=== PATIENT | female | born 1960 | race Caucasian/White ===

== ENCOUNTER → 2017-10-11 | Outpatient (CLI) | payer OTHER | LOC: BRMIMAGING 09:42 | PROVIDERS: ATTEND Family Medicine | DX: R92.8 Other abnormal and inconclusive findings on diagnostic imaging of breast (principal) ==

== ENCOUNTER 2018-05-21 13:59 | Inpatient (IN) | payer OTHER ==
[2018-05-21] MEDS ORDERED: NS 1,000 ML IV ONE ×2 (14:40→16:09)
--- NOTE | 2018-05-21 14:41 | EDPHY ---
H & P Stated Complaint: from PCP for elevated creatinine Time Seen by Provider: 05/21/18 14:32 HPI/ROS: CHIEF COMPLAINT: Generalized body aches HISTORY OF PRESENT ILLNESS: The patient is a 57-year-old female with a history of diabetes insulin dependent, neuropathy and hypertension who began vomiting about 1 week ago. She was not having diarrhea. No fever. No abdominal pain. She presented to the ER and received 2 L of fluid and was discharged home with nausea medication. She states that she then returned to the ER about 3 days later and again required fluids and nausea medication. Since then her nausea has resolved however she continues to feel general body aches. No fever. No chest pain or shortness of breath. No cough. No sore throat. No headache. No urinary symptoms. She did receive a flu vaccination this year. Today she presented for follow-up with her primary Dr. Zahida Medina who noticed that in the ER on Sunday her creatinine was 1.6. This was before she was given IV fluids. Dr. Medina was concerned about this and recommended she come to the ER for further evaluation. Severity: Moderate Modifying factors: None REVIEW OF SYSTEMS: Constitutional: denies: chills, fever, recent illness, recent injury EENTM: denies: blurred vision, double vision, nose congestion Respiratory: denies: cough, shortness of breath Cardiac: denies: chest pain, irregular heart rate, lightheadedness, palpitations Gastrointestinal/Abdominal: The see HPI Genitourinary: denies: dysuria, frequency, hematuria, pain Musculoskeletal: denies: joint pain, muscle pain Skin: denies: lesions, rash, jaundice, bruising Neurological: denies: headache, numbness, paresthesia, tingling, dizziness, weakness Hematologic/Lymphatic: denies: blood clots, easy bleeding, easy bruising Immunologic/allergic: denies: HIV/AIDS, transplant 10 systems reviewed and negative except as noted EXAM: GENERAL: Well-appearing, well-nourished and in no acute distress. HEAD: Atraumatic, normocephalic. EYES: Pupils equal round and reactive to light, extraocular movements intact, sclera anicteric, conjunctiva are normal. ENT: TMs normal, nares patent, oropharynx clear without exudates. Moist mucous membranes. NECK: Normal range of motion, supple without lymphadenopathy or JVD. LUNGS: Breath sounds clear to auscultation bilaterally and equal. No wheezes rales or rhonchi. HEART: Regular rate and rhythm without murmurs, rubs or gallops. ABDOMEN: Soft, nontender, normoactive bowel sounds. No guarding, no rebound. No masses appreciated. BACK: No CVA tenderness, no spinal tenderness, step-offs or deformities EXTREMITIES: Normal range of motion, no pitting or edema. No clubbing or cyanosis. NEUROLOGICAL: Cranial nerves II through XII grossly intact. Normal speech, normal gait. 5/5 strength, normal movement in all extremities, normal sensation , normal reflexes PSYCH: Normal mood, normal affect. SKIN: Warm, dry, normal turgor, no visible rashes or lesions. Source: Patient Exam Limitations: No limitations - Personal History Current Tetanus/Diphtheria Vaccine: Yes Current Tetanus Diphtheria and Acellular Pertussis (TDAP): Yes - Medical/Surgical History Hx Asthma: No Hx Chronic Respiratory Disease: No Hx Diabetes: Yes Hx Cardiac Disease: Yes Hx Renal Disease: No Hx Cirrhosis: No Hx Alcoholism: No Hx HIV/AIDS: No Hx Splenectomy or Spleen Trauma: No Other PMH: DM 1, HTN, neuropathy, ortho/hyst/ - Family History Significant Family History: No pertinent family hx - Social History Smoking Status: Current every day smoker Alcohol Use: None Constitutional: Initial Vital Signs Temperature (C) 36.8 C 05/21/18 14:05 Heart Rate 78 05/21/18 14:05 Respiratory Rate 18 05/21/18 14:05 Blood Pressure 94/67 L 05/21/18 14:05 O2 Sat (%) 99 05/21/18 14:05 O2 Delivery Mode Room Air Allergies/Adverse Reactions: No Known Allergies Allergy (Unverified 05/21/18 14:05) Home Medications: Medication Instructions Recorded Pregabalin [Lyrica 50mg (*)] 100 mg PO BID 10/11/15 Sertraline HCl [Zoloft 100mg (*)] 150 mg PO DAILY 10/11/15 amLODIPine BESYLATE [Norvasc 5 mg 5 mg PO DAILY 10/11/15 (*)] Cholecalciferol Vit D3 [Vitamin D3 2,000 units PO BID 10/12/15 2000 units tab (OTC)] Ferrous Sulfate [Ferrous Sulf 325 325 mg PO DAILY 10/12/15 MG (*)] Herbals/Supplements -Info Only 1 ea PO DAILY 10/12/15 Potassium Cl [Klor-Con 20 meq (*)] 20 meq PO BID 10/12/15 Ranitidine HCl [Zantac] 150 mg PO BID 10/12/15 Vitamin B Complex [B Complex] 1 each PO DAILY 10/12/15 Gabapentin [Neurontin 100 MG (*)] 100 mg PO BID 05/21/18 Glucosamine Sulfate [Glucosamine 500 mg PO BID 05/21/18 Sulfate 500 MG (*)] Insulin Lispro [humALOG LISPRO 100 0 - 15 unit SC TIDMEAL 05/21/18 units/ml (*)] Lisinopril [Zestril 2.5 mg (*)] 2.5 mg PO DAILY 05/21/18 Metoprolol Succinate Xr [Toprol Xl 100 mg PO BID 05/21/18 100 mg (*)] Medical Decision Making - Diagnostics EKG Interpretation: An EKG obtained and was read and documented in trace view. Please see trace view for full reading and report. Sinus rhythm, unusual biphasic T-wave anteriorly, no previous for comparison A repeat EKG obtained and was read and documented in trace view. Please see trace view for full reading and report. Sinus rhythm, LVH, nonspecific T-wave abnormalities anterior leads, unchanged from previous Imaging Results: Imaging Impressions Chest X-Ray 05/21/18 14:42 Impression: Mild bronchitis. No pneumonia. Imaging: Discussed imaging studies w/ body recall instructor Radiologist ED Course/Re-evaluation: The patient's potassium is significantly low. Her glucose is elevated. She does not have an anion gap. I will continue to treat with fluids and potassium replacement. Will allow the glucose to ride high for now. Have paged hospital service for admission. Patient and agree with this plan. 4:10 p.m. Discussed the case with Dr. Mcgraw who will admit. Differential Diagnosis: Partial list of the Differential diagnosis considered include but were not limited to; renal insufficiency, hyponatremia, hypokalemia, DKA, dehydration, viral syndrome and although unlikely based on the history and physical exam, I also considered influenza, sepsis. Critical Care Time: Critical care time spent by me, Dr. Vail exclusive with this patient was 35 minutes, exclusive of the PA time exclusive of procedures. The organ system that was at risk was cardiovascular and I gave IV fluids, medications, consultation and admission to prevent worsening of the patient's condition - Data Points Laboratory Results: Laboratory Results 05/21/18 14:45 05/21/18 14:45 05/21/18 05/21/18 05/21/18 15:04 14:55 14:45 WBC RBC Hgb Hct MCV MCH MCHC RDW Plt Count MPV Neut % (Auto) Lymph % (Auto) [place] % (Auto) Eos % (Auto) Baso % (Auto) Nucleat RBC Rel Count Absolute Neuts (auto) Absolute Lymphs (auto) Absolute Monos (auto) Absolute Eos (auto) Absolute Basos (auto) Absolute Nucleated RBC Immature Gran % Immature Gran # Sodium Potassium Chloride Carbon Dioxide Anion Gap BUN Creatinine Estimated GFR Glucose Calcium Magnesium 1.5 mg/dL L mg/dL (1.6-2.3) Total Bilirubin Conjugated Bilirubin Unconjugated Bilirubin AST ALT Alkaline Phosphatase Creatine Kinase POC Troponin I 0.06 ng/mL ng/mL (0.00-0.08) Total Protein Albumin Nasal Influenza A PCR NEGATIVE FOR FLU A (NEGATIVE) Nasal Influenza B PCR NEGATIVE FOR FLU B (NEGATIVE) 05/21/18 05/21/18 14:45 14:45 WBC 19.67 10^3/uL H 10^3/uL (3.80-9.50) RBC 4.65 10^6/uL 10^6/uL (4.18-5.33) Hgb 13.6 g/dL g/dL (12.6-16.3) Hct 38.5 % % (38.0-47.0) MCV 82.8 fL fL (81.5-99.8) MCH 29.2 pg pg (27.9-34.1) MCHC 35.3 g/dL g/dL (32.4-36.7) RDW 14.4 % % (11.5-15.2) Plt Count 119 10^3/uL L 10^3/uL (150-400) MPV 12.8 fL H fL (8.7-11.7) Neut % (Auto) 88.7 % H % (39.3-74.2) Lymph % (Auto) 3.7 % L % (15.0-45.0) [place] % (Auto) 6.9 % % (4.5-13.0) Eos % (Auto) 0.0 % L % (0.6-7.6) Baso % (Auto) 0.2 % L % (0.3-1.7) Nucleat RBC Rel Count 0.0 % % (0.0-0.2) Absolute Neuts (auto) 17.46 10^3/uL H 10^3/uL (1.70-6.50) Absolute Lymphs (auto) 0.73 10^3/uL L 10^3/uL (1.00-3.00) Absolute Monos (auto) 1.36 10^3/uL H 10^3/uL (0.30-0.80) Absolute Eos (auto) 0.00 10^3/uL L 10^3/uL (0.03-0.40) Absolute Basos (auto) 0.03 10^3/uL 10^3/uL (0.02-0.10) Absolute Nucleated RBC 0.00 10^3/uL 10^3/uL (0-0.01) Immature Gran % 0.5 % % (0.0-1.1) Immature Gran # 0.09 10^3/uL 10^3/uL (0.00-0.10) Sodium 131 mEq/L L mEq/L (135-145) Potassium 2.4 mEq/L L* mEq/L (3.5-5.2) Chloride 94 mEq/L L mEq/L (97-110) Carbon Dioxide 23 mEq/l mEq/l (22-31) Anion Gap 14 mEq/L mEq/L (6-14) BUN 20 mg/dL mg/dL (7-23) Creatinine 1.5 mg/dL H mg/dL (0.6-1.0) Estimated GFR 36 Glucose 191 mg/dL H mg/dL (70-100) Calcium 9.0 mg/dL mg/dL (8.5-10.4) Magnesium Total Bilirubin 0.8 mg/dL mg/dL (0.1-1.4) Conjugated Bilirubin 0.0 mg/dL mg/dL (0.0-0.5) Unconjugated Bilirubin 0.3 mg/dL mg/dL (0.0-1.1) AST 15 IU/L IU/L (14-46) ALT 23 IU/L IU/L (9-52) Alkaline Phosphatase 99 IU/L IU/L (38-126) Creatine Kinase 103 IU/L IU/L (0-156) POC Troponin I Total Protein 6.3 g/dL g/dL (6.3-8.2) Albumin 3.8 g/dL g/dL (3.5-5.0) Nasal Influenza A PCR Nasal Influenza B PCR Medications Given: Acetaminophen (Tylenol) 650 mg PO Q4HRS PRN PRN Reason: Pain, Mild/Fever, Can Take PO Stop: 11/17/18 17:21 Last Admin: 05/21/18 18:00 Dose: 650 mg Discontinued Medications Sodium Chloride (Ns) 1,000 mls @ 0 mls/hr IV EDNOW ONE; Wide Open PRN Reason: Protocol Stop: 05/21/18 14:41 Last Admin: 05/21/18 14:45 Dose: 1,000 mls Potassium Chloride (Potassium Cl 10 Meq (Premix)) 100 mls @ 200 mls/hr IV Q30M CAMI Stop: 05/21/18 17:59 Last Admin: 05/21/18 18:04 Dose: 100 mls Sodium Chloride (Ns) 1,000 mls @ 0 mls/hr IV EDNOW ONE; Wide Open PRN Reason: Protocol Stop: 05/21/18 16:10 Last Admin: 05/21/18 16:37 Dose: 1,000 mls Potassium Chloride (Klor Packets) 20 meq PO EDNOW ONE Stop: 05/21/18 15:55 Last Admin: 05/21/18 16:01 Dose: 20 meq Point of Care Test Results: Chemistry 05/21/18 15:04 POC Troponin I 0.06 ng/mL ng/mL (0.00-0.08) Departure - Departure Disposition: [facility] Inpatient Acute Clinical Impression: Hypokalemia Condition: Critical
--- NOTE | 2018-05-21 15:01 | CPEKG ---
Test Reason : OPEN Blood Pressure : / mmHG Vent. Rate : 068 BPM Atrial Rate : 068 BPM P-R Int : 150 ms QRS Dur : 080 ms QT Int : 596 ms P-R-T Axes : 039 053 059 degrees QTc Int : 635 ms Sinus rhythm Consider left ventricular hypertrophy Prolonged QT interval Confirmed by Domonique Abraham ([id number]) on 05/21/2018 3:01:32 PM Referred By: DOMONIQUE ABRAHAM Confirmed By:Domonique Abraham
[2018-05-21 15:04] LABS: PLATELET COUNT 119 10^3/uL (150-400)
--- NOTE | 2018-05-21 15:47 | CPEKG ---
Test Reason : OPEN Blood Pressure : / mmHG Vent. Rate : 071 BPM Atrial Rate : 071 BPM P-R Int : 142 ms QRS Dur : 082 ms QT Int : 528 ms P-R-T Axes : 067 073 056 degrees QTc Int : 574 ms Sinus rhythm Probable left atrial enlargement Probable left ventricular hypertrophy Prolonged QT interval Confirmed by Domonique Abraham ([id number]) on 05/21/2018 3:46:42 PM Referred By: DOMONIQUE ABRAHAM Confirmed By:Domonique Abraham
[2018-05-21 15:50] LABS: CREATINE KINASE 103 IU/L (0-156)
[2018-05-21] MEDS ORDERED: POTASSIUM CL 20 MEQ PKT PO ONE (15:54)
[2018-05-21] MEDS: POTASSIUM Cl (KCl) 100 ML IV SCH ×4 (16:01→18:44)
[2018-05-21] MEDS ORDERED: POTASSIUM Cl (KCl) 40 MEQ in NS 1,000 ML IV SCH (16:30)
--- NOTE | 2018-05-21 16:34 | HOSPPROG ---
Hospitalist Progress Note Assessment/Plan: Please see the history and physical exam as detailed in Felicity Mott's note. I have interviewed and examined the patient and reviewed with Felicity Mott. The patient will require hospital admission for management of hydration, electrolyte issues, monitoring of ekg abnormality, is the setting of intractable nausea vomiting PAST MEDICAL HISTORY: * Hypertension * Diabetes mellitus insulin dependent on a pump, complicated by retinopathy and neuropathy * Fecal incontinence * DJD * Peripheral neuropathy * Hyponatremia * Tobacco abuse * Alcohol abuse has cut back dramatically in the past 6 months * Osteoporosis with fractures of right pubis bone and sacral insufficiency fracture * Multiple thyroid nodules, no malignant cells seen on aspiration 2012 * Sciatica with epidural injection at L5 left * Collagenous colitis * Hypercholesterolemia * Vitamin-D deficiency * Pneumonia CURRENT DIAGNOSES: * Nausea vomiting, suspect Gastroenteritis or other viral illness * Hypokalemia due to above * Dehydration * Acute renal failure due to above * Biphasic T-wave abnormality on EKG * Insulin dependent diabetes on insulin pump: Patient currently states pump not working but her sugars are in reasonable range and improving with hydration so I believe she is getting some insulin, will need close monitoring PLANS: * IV HYDRATION * Potassium replacement, Mag replacement * Monitor those closely * Recheck EKG in morning * Follow sugars closely, no change in pump for now unless there are problems indicating to do so * GI pathogen panel if she has any diarrhea Objective: Vital Signs Temp Pulse Resp BP Pulse Ox 36.8 C 70 16 107/60 98 05/21/18 14:05 05/21/18 15:56 05/21/18 15:56 05/21/18 15:56 05/21/18 15:56 ICD10 Worksheet Patient Problems: Problems Problem Status Onset Hypokalemia Acute Hyponatremia Acute Low back pain Acute Vomiting Acute
[2018-05-21] MEDS ORDERED: PROTOCOL POTASSIUM 1 DOSE MISC PRN (16:35)
[2018-05-21] MEDS ORDERED: MAGNESIUM SULF 1 GM/DEXTROSE 100 ML IV ONE (16:51)
[2018-05-21] MEDS ORDERED: PROTOCOL MAGNESIUM 1 DOSE IV PRN (16:51)
[2018-05-21] MEDS ORDERED: ONDANSETRON 4 MG/2 ML VIAL IVP PRN (17:22)
[2018-05-21] MEDS ORDERED: ONDANSETRON DISINTEGRATING 4 MG TAB PO PRN (17:22)
--- NOTE | 2018-05-21 17:33 | PDGENHP ---
<Heather Mott - Last Filed: 05/21/18 20:03> History and Physical - Chief Complaint Vomiting, nausea - History of Present Illness HPI: 57 y/o female with hx of DM I, HTN and neuropathy presents to the ER with 1 weeks worth of vomiting and nausea. She reports she had one bout of severe vomiting, no hematemesis and many days of dry heaving and small volume emesis. She went to [facility] x 2 for vomiting and nausea, received fluids and anti- emetics. Today, she went to her PCP Dr. Zahida Medina who saw her Cr at time of [facility] visit to be 1.6 and encouraged her to come to the ER. Today, the pt reports no nausea, fever, chills, CP, SOB, diarrhea. Since receiving fluids here and partial potassium replacement, she feels better. She is hypokalemic and (2.4) and LEIDY (BUN/Cr: 20/1.5). She is being admitted for treatment and monitoring. History Information - Allergies/Home Medication List Allergies/Adverse Reactions: No Known Allergies Allergy (Unverified 05/21/18 14:05) Home Medications: Pregabalin [Lyrica 50mg (*)] 100 mg PO BID 10/11/15 [Last Taken 10/11/15 08:00] Sertraline HCl [Zoloft 100mg (*)] 150 mg PO DAILY 10/11/15 [Last Taken 10/11/15] amLODIPine BESYLATE [Norvasc 5 mg (*)] 5 mg PO DAILY 10/11/15 [Last Taken ] Cholecalciferol Vit D3 [Vitamin D3 2000 units tab (OTC)] 2,000 units PO BID [Last Taken 10/11/15 08:00] Ferrous Sulfate [Ferrous Sulf 325 MG (*)] 325 mg PO DAILY 10/12/15 [Last Taken 10/11/15] Herbals/Supplements -Info Only 1 ea PO DAILY 10/12/15 [Last Taken Unknown] Potassium Cl [Klor-Con 20 meq (*)] 20 meq PO BID 10/12/15 [Last Taken 10/11/15 08:00] Ranitidine HCl [Zantac] 150 mg PO BID 10/12/15 [Last Taken 10/11/15 08:00] Vitamin B Complex [B Complex] 1 each PO DAILY 10/12/15 [Last Taken 10/11/15] Gabapentin [Neurontin 100 MG (*)] 100 mg PO BID 05/21/18 [Last Taken Unknown] Glucosamine Sulfate [Glucosamine Sulfate 500 MG (*)] 500 mg PO BID 05/21/18 [ Last Taken Unknown] Insulin Lispro [humALOG LISPRO 100 units/ml (*)] 0 - 15 unit SC TIDMEAL [Last Taken Unknown] Lisinopril [Zestril 2.5 mg (*)] 2.5 mg PO DAILY 05/21/18 [Last Taken Unknown] Metoprolol Succinate Xr [Toprol Xl 100 mg (*)] 100 mg PO BID 05/21/18 [Last Taken Unknown] I have personally reviewed and updated: family history, medical history, social history, surgical history - Past Medical History diabetes type 1 Additional medical history: Neuropathy. Diabetic retinopathy. Hypertension - Surgical History Reports: hysterectomy Additional surgical history: L ankle reconstruction - Family History Positive for: diabetes type II, myocardial infarction - Social History Smoking Status: Current every day smoker Tobacco Use: Cigarettes, Greater than 1 pack/day Alcohol Use: Occasionally (Social drinker. Drinks 3 drinks/week) Drug Use: None Review of Systems Review of Systems: ROS: 10pt was reviewed & negative except for what was stated in HPI & below Physical Exam Physical Exam: Lab data and imaging were reviewed. Case discussed with admitting physician, Dr. Emigdio Mcgraw WBC: 19.67 Plt: 119 Na: 131 K: 2.4 Ma.5 BUN/Cr: 20/1.5 CXR: mild diffuse peribronchial thickening similar to 2012 imaging EKG: SR, LVH, prolonged QT interval Temp Pulse Resp BP Pulse Ox 36.8 C 70 16 107/60 98 05/21/18 14:05 05/21/18 15:56 05/21/18 15:56 05/21/18 15:56 05/21/18 15:56 Constitutional: no apparent distress, appears nourished, not in pain Eyes: PERRL, anicteric sclera, EOMI Ears, Nose, Mouth, Throat: hearing normal, ears appear normal, no oral mucosal ulcers, dry mucous membranes Cardiovascular: regular rate and rhythym, no murmur, rub, or gallop, No edema Peripheral Pulses: 2+: dorsalis-pedis (R) (Radial 2+), dorsalis-pedis (L) ( Radial 2+) Respiratory: reduced air movement (Throughout lung crowe) Gastrointestinal: normoactive bowel sounds, soft, non-tender abdomen, no palpable masses Genitourinary: no bladder fullness, no bladder tenderness Skin: warm, normal color, no rashes or abrasions, no fluctuance, no induration, No mottled Musculoskeletal: full muscle strength, no muscle tenderness, normal joint ROM, no joint effusions Neurologic: AAOx3, sensation intact bilaterally, CN II-XII Intact Psychiatric: interacting appropriately, not anxious, not encephalopathic, thought process linear Lymph, Heme, Immunologic: no cervical LAD, no supraclavicular LAD Lab Data & Imaging Review 05/21/18 14:45 05/21/18 14:45 WBC 19.67 10^3/uL (3.80-9.50) H 05/21/18 14:45 RBC 4.65 10^6/uL (4.18-5.33) 05/21/18 14:45 Hgb 13.6 g/dL (12.6-16.3) 05/21/18 14:45 Hct 38.5 % (38.0-47.0) 05/21/18 14:45 MCV 82.8 fL (81.5-99.8) 05/21/18 14:45 MCH 29.2 pg (27.9-34.1) 05/21/18 14:45 MCHC 35.3 g/dL (32.4-36.7) 05/21/18 14:45 RDW 14.4 % (11.5-15.2) 05/21/18 14:45 Plt Count 119 10^3/uL (150-400) L 05/21/18 14:45 MPV 12.8 fL (8.7-11.7) H 05/21/18 14:45 Neut % (Auto) 88.7 % (39.3-74.2) H 05/21/18 14:45 Lymph % (Auto) 3.7 % (15.0-45.0) L 05/21/18 14:45 [place] % (Auto) 6.9 % (4.5-13.0) 05/21/18 14:45 Eos % (Auto) 0.0 % (0.6-7.6) L 05/21/18 14:45 Baso % (Auto) 0.2 % (0.3-1.7) L 05/21/18 14:45 Nucleat RBC Rel Count 0.0 % (0.0-0.2) 05/21/18 14:45 Absolute Neuts (auto) 17.46 10^3/uL (1.70-6.50) H 05/21/18 14:45 Absolute Lymphs (auto) 0.73 10^3/uL (1.00-3.00) L 05/21/18 14:45 Absolute Monos (auto) 1.36 10^3/uL (0.30-0.80) H 05/21/18 14:45 Absolute Eos (auto) 0.00 10^3/uL (0.03-0.40) L 05/21/18 14:45 Absolute Basos (auto) 0.03 10^3/uL (0.02-0.10) 05/21/18 14:45 Absolute Nucleated RBC 0.00 10^3/uL (0-0.01) 05/21/18 14:45 Immature Gran % 0.5 % (0.0-1.1) 05/21/18 14:45 Immature Gran # 0.09 10^3/uL (0.00-0.10) 05/21/18 14:45 Sodium 131 mEq/L (135-145) L 05/21/18 14:45 Potassium 2.4 mEq/L (3.5-5.2) L* 05/21/18 14:45 Chloride 94 mEq/L (97-110) L 05/21/18 14:45 Carbon Dioxide 23 mEq/l (22-31) 05/21/18 14:45 Anion Gap 14 mEq/L (6-14) 05/21/18 14:45 BUN 20 mg/dL (7-23) 05/21/18 14:45 Creatinine 1.5 mg/dL (0.6-1.0) H 05/21/18 14:45 Estimated GFR 36 05/21/18 14:45 Glucose 191 mg/dL (70-100) H 05/21/18 14:45 Calcium 9.0 mg/dL (8.5-10.4) 05/21/18 14:45 Magnesium 1.5 mg/dL (1.6-2.3) L 05/21/18 14:45 Total Bilirubin 0.8 mg/dL (0.1-1.4) 05/21/18 14:45 Conjugated Bilirubin 0.0 mg/dL (0.0-0.5) 05/21/18 14:45 Unconjugated Bilirubin 0.3 mg/dL (0.0-1.1) 05/21/18 14:45 AST 15 IU/L (14-46) 05/21/18 14:45 ALT 23 IU/L (9-52) 05/21/18 14:45 Alkaline Phosphatase 99 IU/L (38-126) 05/21/18 14:45 Creatine Kinase 103 IU/L (0-156) 05/21/18 14:45 POC Troponin I 0.06 ng/mL (0.00-0.08) 05/21/18 15:04 Total Protein 6.3 g/dL (6.3-8.2) 05/21/18 14:45 Albumin 3.8 g/dL (3.5-5.0) 05/21/18 14:45 Nasal Influenza A PCR NEGATIVE FOR FLU A (NEGATIVE) 05/21/18 14:55 Nasal Influenza B PCR NEGATIVE FOR FLU B (NEGATIVE) 05/21/18 14:55 Assessment & Plan Plan: 57 y/o female with hx of DM I, HTN, neuropathy presents with 1 weeks worth of nausea and vomiting. Negative for influenza. She is hemodynamically stable. 1. Hypokalemic (2.4), hypomagnesemia (1.5), hyponatremic (131) : She received 20 meq PO + 40 meq IV in ED as well as 2L NS. Rechecking BMP now 1999. She is asymptomatic. -K and Mg replacement protocol in place -IV Mg 1gm tonight -Cont tele monitoring 2. DM I: Glucose (192). She does have an insulin pump that is currently not working. She is not receiving any continuous nor bolus insulin w/ her pump. -Glucose checks Q6H + PRN -No ISS for now and will continue to monitor her glucose closely as insulin will drive potassium down 3. Acute kidney injury (BUN/Cr: 20/1.5 vs her baseline of 10/0.6) 2/2 probable fluid loss and poor PO intake. She received 2L NS in ED. -Encourage PO fluids; if unable to take on adequate PO fluid, initiate IV maintenance fluid -Avoid nephrotoxic agents; holding lisinopril and HCTZ 4. Hypertension: stable. Holding lisinopril and HCTZ due to above. On amlodipine, metoprolol. 5. Leukocytosis (19.67): She is afebrile and hemodynamically stable. Suspect elevated white count related to active vomiting, dehydration and not infectious in nature. Will recheck CBC in AM after sufficient fluid resuscitation has occurred. Diet: Carb-Controlled VTE ppx: SCDs Code: Full Dispo: Admit to obs <John Mcgraw - Last Filed: 05/21/18 23:33> History and Physical - History of Present Illness Review of Systems Review of Systems: Physical Exam Physical Exam: Temp Pulse Resp BP Pulse Ox 37.1 C 74 20 101/57 L 91 L 05/21/18 23:12 05/21/18 23:12 05/21/18 23:12 05/21/18 23:12 05/21/18 23:12 Lab Data & Imaging Review 05/21/18 14:45 05/21/18 22:32 WBC 19.67 10^3/uL (3.80-9.50) H 05/21/18 14:45 RBC 4.65 10^6/uL (4.18-5.33) 05/21/18 14:45 Hgb 13.6 g/dL (12.6-16.3) 05/21/18 14:45 Hct 38.5 % (38.0-47.0) 05/21/18 14:45 MCV 82.8 fL (81.5-99.8) 05/21/18 14:45 MCH 29.2 pg (27.9-34.1) 05/21/18 14:45 MCHC 35.3 g/dL (32.4-36.7) 05/21/18 14:45 RDW 14.4 % (11.5-15.2) 05/21/18 14:45 Plt Count 119 10^3/uL (150-400) L 05/21/18 14:45 MPV 12.8 fL (8.7-11.7) H 05/21/18 14:45 Neut % (Auto) 88.7 % (39.3-74.2) H 05/21/18 14:45 Lymph % (Auto) 3.7 % (15.0-45.0) L 05/21/18 14:45 [place] % (Auto) 6.9 % (4.5-13.0) 05/21/18 14:45 Eos % (Auto) 0.0 % (0.6-7.6) L 05/21/18 14:45 Baso % (Auto) 0.2 % (0.3-1.7) L 05/21/18 14:45 Nucleat RBC Rel Count 0.0 % (0.0-0.2) 05/21/18 14:45 Absolute Neuts (auto) 17.46 10^3/uL (1.70-6.50) H 05/21/18 14:45 Absolute Lymphs (auto) 0.73 10^3/uL (1.00-3.00) L 05/21/18 14:45 Absolute Monos (auto) 1.36 10^3/uL (0.30-0.80) H 05/21/18 14:45 Absolute Eos (auto) 0.00 10^3/uL (0.03-0.40) L 05/21/18 14:45 Absolute Basos (auto) 0.03 10^3/uL (0.02-0.10) 05/21/18 14:45 Absolute Nucleated RBC 0.00 10^3/uL (0-0.01) 05/21/18 14:45 Immature Gran % 0.5 % (0.0-1.1) 05/21/18 14:45 Immature Gran # 0.09 10^3/uL (0.00-0.10) 05/21/18 14:45 Sodium 129 mEq/L (135-145) L 05/21/18 22:32 Potassium 2.6 mEq/L (3.5-5.2) L* 05/21/18 22:32 Chloride 101 mEq/L (97-110) 05/21/18 22:32 Carbon Dioxide 18 mEq/l (22-31) L 05/21/18 22:32 Anion Gap 10 mEq/L (6-14) 05/21/18 22:32 BUN 21 mg/dL (7-23) 05/21/18 22:32 Creatinine 1.4 mg/dL (0.6-1.0) H 05/21/18 22:32 Estimated GFR 39 05/21/18 22:32 Glucose 331 mg/dL (70-100) H 05/21/18 22:32 POC Glucose 122 mg/dL (70-100) H 05/21/18 18:43 Calcium 7.8 mg/dL (8.5-10.4) L 05/21/18 22:32 Magnesium 1.5 mg/dL (1.6-2.3) L 05/21/18 14:45 Total Bilirubin 0.8 mg/dL (0.1-1.4) 05/21/18 14:45 Conjugated Bilirubin 0.0 mg/dL (0.0-0.5) 05/21/18 14:45 Unconjugated Bilirubin 0.3 mg/dL (0.0-1.1) 05/21/18 14:45 AST 15 IU/L (14-46) 05/21/18 14:45 ALT 23 IU/L (9-52) 05/21/18 14:45 Alkaline Phosphatase 99 IU/L (38-126) 05/21/18 14:45 Creatine Kinase 103 IU/L (0-156) 05/21/18 14:45 POC Troponin I 0.06 ng/mL (0.00-0.08) 05/21/18 15:04 Total Protein 6.3 g/dL (6.3-8.2) 05/21/18 14:45 Albumin 3.8 g/dL (3.5-5.0) 05/21/18 14:45 Urine Color YELLOW 05/21/18 21:15 Urine Appearance CLEAR 05/21/18 21:15 Urine pH 6.0 (5.0-7.5) 05/21/18 21:15 Ur Specific [place] 1.010 (1.002-1.030) 05/21/18 21:15 Urine Protein NEGATIVE (NEGATIVE) 05/21/18 21:15 Urine Ketones TRACE (NEGATIVE) H 05/21/18 21:15 Urine Blood 1+ (NEGATIVE) H 05/21/18 21:15 Urine Nitrate NEGATIVE (NEGATIVE) 05/21/18 21:15 Urine Bilirubin NEGATIVE (NEGATIVE) 05/21/18 21:15 Urine Urobilinogen NEGATIVE EU (0.2-1.0) 05/21/18 21:15 Ur Leukocyte Esterase 2+ (NEGATIVE) H 05/21/18 21:15 Urine RBC 3-5 /hpf (0-3) H 05/21/18 21:15 Urine WBC 15-25 /hpf (0-3) H 05/21/18 21:15 Ur Epithelial Cells TRACE /lpf (NONE-1+) 05/21/18 21:15 Hyaline Casts 1-5 /lpf (0-1) 05/21/18 21:15 Urine Mucus TRACE /lpf (NONE-1+) 05/21/18 21:15 Urine Glucose NEGATIVE (NEGATIVE) 05/21/18 21:15 Nasal Influenza A PCR NEGATIVE FOR FLU A (NEGATIVE) 05/21/18 14:55 Nasal Influenza B PCR NEGATIVE FOR FLU B (NEGATIVE) 05/21/18 14:55 Assessment & Plan Assessment: Hypokalemia (Acute) Plan: Seen by me along with Felicity Mott and reviewed in detail with Felicity Mott [employer]. Overall agree with the assessment and treatment plans as above. A comment the patient mentions that she is feeling her insulin pump is broken and she is not getting insulin but her sugars are actually in good range for type 1 and clearly no signs of ketoacidosis so I think her pump is actually working to some degree, will follow sugars closely
[2018-05-21] MEDS: ACETAMINOPHEN 325 MG TAB PO PRN (18:00)
[2018-05-21] MEDS: CHOLECALCIFEROL VIT D3 2,000 UNITS TAB/CAP PO SCH (21:08)
[2018-05-21] MEDS: PREGABALIN 100 MG CAP PO SCH (21:08)
[2018-05-21] MEDS: GABAPENTIN 100 MG CAP PO SCH (21:08)
[2018-05-21] MEDS: METOPROLOL SUCCINATE XR 100 MG TAB PO SCH (21:08)
[2018-05-21] MEDS ORDERED: POTASSIUM CL 20 MEQ TAB PO ONE (23:18)
[2018-05-22] MEDS ORDERED: NS 1,000 ML IV SCH ×2 (00:15→15:15)
[2018-05-22] MEDS ORDERED: POTASSIUM Cl (KCl) 40 MEQ in NS 1,000 ML IV SCH (00:30)
[2018-05-22] MEDS: FAMOTIDINE 20 MG TAB PO SCH ×2 (01:42→08:28)
[2018-05-22 04:30] LABS: PLATELET COUNT 95 10^3/uL (150-400)
[2018-05-22] MEDS ORDERED: POTASSIUM CL 10 MEQ TAB PO ONE ×2 (06:16→19:56)
[2018-05-22] MEDS: CHOLECALCIFEROL VIT D3 2,000 UNITS TAB/CAP PO SCH ×2 (08:28→20:57)
[2018-05-22] MEDS: PREGABALIN 100 MG CAP PO SCH ×2 (08:28→20:57)
[2018-05-22] MEDS: SERTRALINE HCL 100 MG TAB PO SCH (08:29)
[2018-05-22] MEDS: POTASSIUM CL 20 MEQ TAB PO SCH ×2 (08:31→20:57)
[2018-05-22] MEDS: METOPROLOL SUCCINATE XR 100 MG TAB PO SCH ×2 (08:32→20:57)
[2018-05-22] MEDS: ACETAMINOPHEN 325 MG TAB PO PRN (08:32)
[2018-05-22] MEDS: VITAMIN B COMPLEX 1 EA CAP/TAB PO SCH (08:32)
[2018-05-22] MEDS: GABAPENTIN 100 MG CAP PO SCH ×2 (08:33→20:57)
[2018-05-22] MEDS ORDERED: LISINOPRIL 2.5 MG TAB PO SCH (09:00)
[2018-05-22] MEDS ORDERED: amLODIPine BESYLATE 5 MG TAB PO SCH (09:00)
[2018-05-22] MEDS ORDERED: MAGNESIUM SULF 1 GM/DEXTROSE 100 ML IV ONE ×2 (12:00→14:33)
[2018-05-22] MEDS ORDERED: D50W 25 GM/50 ML SYR IVP PRN (13:39)
[2018-05-22] MEDS: INSULIN LISPRO 100 UNIT/ML SC SCH ×2 (14:40→18:22)
--- NOTE | 2018-05-22 14:54 | ASMTCMCOM ---
CM Note CM Note Notes: 05/22/2018 Case Management Note Discussed pt during rounds this morning. Pt admitted for hypokalemia and dehydration. Pt is T1D. Met w/pt and Ray [phone]. Pt uses [employer] 670 g pump with CGM. Pt is followed by Dr. Malone. Pt reports using [employer] rep to troubleshoot pump issues prior to admission. There are no case management d/c needs identified d/t family support and pt independence with ADL's prior to admission. Case Management d/c poc: independent with follow up as directed. Case Management available if needs change. Date Signed: 05/22/2018 02:53 PM Electronically Signed By:Barbie Cornell RN
[2018-05-22] MEDS ORDERED: NS 500 ML IV ONE (15:01)
--- NOTE | 2018-05-22 15:11 | HOSPPROG ---
Hospitalist Progress Note Assessment/Plan: #IDDM type I #Hyperglycemia, Metabolic Acidosis, Nearing DKA #Dehydration #UTI #Malfunctioning insulin pump, ran out of insulin #Hypokalemia, severe #Hypomagnesemia #Acute Kidney Injury #Long QT syndrome, stop meds prolonging QT #Hx of HTN #Nausea and Vomiting, improving Plan: The pt is ill. Her glucose has increased. She still has profound dehydration. Still has profound electrolytes abnormalities Replace electrolytes, would target Mg above 2. Provide IVF Hydration with bolus now start ISS plus insulin stat now. Will hopefully be able to restart insulin pump soon start Rocephin The pt is ill, labs are c/w worse clinical picture since yesterday. total critical care time is 35 mins managing pt with profound dehydration requiring boluses, profound hypokalemia, and active insulin management. active management of labs/electrolytes Subjective: nausea is better. reports feeling better, but glucose much increased. K is unchanged this morning (2.4). Mg is better. Cr about the same. pump still not working Objective: Vital Signs Temp Pulse Resp BP Pulse Ox 36.9 C 70 20 105/63 97 05/22/18 15:03 05/22/18 15:03 05/22/18 15:03 05/22/18 15:03 05/22/18 15:03 Laboratory Results 05/22/18 03:36 05/22/18 13:08 05/21/18 05/22/18 05/23/18 05:59 05:59 05:59 Intake Total 1200 350 Output Total 1000 Balance 1200 -650 - Physical Exam Constitutional: no apparent distress Eyes: PERRL, EOMI Ears, Nose, Mouth, Throat: moist mucous membranes, dry mucous membranes Cardiovascular: regular rate and rhythym, No edema Respiratory: no respiratory distress, no rales or rhonchi Gastrointestinal: normoactive bowel sounds Skin: warm Neurologic: AAOx3 Psychiatric: interacting appropriately, not anxious, not encephalopathic Lymph, Heme, Immunologic: No petechiae ICD10 Worksheet Patient Problems: Problems Problem Status Onset Hypokalemia Acute Hyponatremia Acute Low back pain Acute Vomiting Acute
[2018-05-22] MEDS: HYDROCODONE/APAP 5/325 TAB PO PRN (15:54)
--- NOTE | 2018-05-22 16:40 | PDMN ---
Medical Necessity Medical necessity: [facility] M130 diabetes; 57 yo F with DM2 presented with w1 week of N/V, pt continues to feel ill even after tx. Glucose is increasing, still with dehydration, electrolyte abnormalities, status changed to INPT for ongoing med nec care- further monitoring, eval and tx of hyperglycemia. metabolic acidosis. hypokalemia, hypomagnesemia, acute kidney injury, Long QT syndrome, pt insuin pump still not working
[2018-05-22] MEDS: CYCLOBENZAPRINE 10 MG TAB PO PRN (18:27)
[2018-05-23 04:33] LABS: PLATELET COUNT 105 10^3/uL (150-400)
[2018-05-23] MEDS: FAMOTIDINE 20 MG TAB PO SCH (09:54)
[2018-05-23] MEDS: POTASSIUM CL 20 MEQ TAB PO SCH ×2 (09:54→21:24)
[2018-05-23] MEDS: METOPROLOL SUCCINATE XR 100 MG TAB PO SCH ×2 (09:54→21:24)
[2018-05-23] MEDS: VITAMIN B COMPLEX 1 EA CAP/TAB PO SCH (09:55)
[2018-05-23] MEDS: GABAPENTIN 100 MG CAP PO SCH ×2 (09:55→21:24)
[2018-05-23] MEDS: SERTRALINE HCL 100 MG TAB PO SCH (09:55)
[2018-05-23] MEDS: CHOLECALCIFEROL VIT D3 2,000 UNITS TAB/CAP PO SCH ×2 (09:55→21:23)
[2018-05-23] MEDS: INSULIN LISPRO 100 UNIT/ML SC SCH ×2 (09:56→13:10)
[2018-05-23] MEDS: PREGABALIN 100 MG CAP PO SCH ×2 (10:19→21:24)
[2018-05-23] MEDS: CYCLOBENZAPRINE 10 MG TAB PO PRN ×2 (10:19→18:27)
[2018-05-23] MEDS ORDERED: D50W 25 GM/50 ML SYR IVP PRN (13:26)
[2018-05-23] MEDS ORDERED: INSULIN PUMP, PATIENT OWN 1 EA MISC SCH (13:30)
[2018-05-23] MEDS ORDERED: NON-FORMULARY NEW DRUG (Insulin Pump, Patient Own 1 EA) MISC SCH (13:30)
[2018-05-23] MEDS: ACETAMINOPHEN 325 MG TAB PO PRN (16:26)
--- NOTE | 2018-05-23 16:35 | HOSPPROG ---
Hospitalist Progress Note Assessment/Plan: #IDDM type I #Hyperglycemia, Metabolic Acidosis, Nearing DKA -improved #Dehydration #UTI, Rocephin #Malfunctioning insulin pump, ran out of insulin #Hypokalemia, severe #Hypomagnesemia #Acute Kidney Injury #Long QT syndrome, stop meds prolonging QT #Hx of HTN #Nausea and Vomiting, improving Plan: overall improving trial off IVF today pump will hopefully be fixed today, if not then do long acting insulin plus ISS anticipate d/c tomorrow Subjective: no cp or sob. no n/v Objective: Vital Signs Temp Pulse Resp BP Pulse Ox 37.6 C 76 19 120/76 95 05/23/18 16:00 05/23/18 16:00 05/23/18 16:00 05/23/18 16:00 05/23/18 16:00 Laboratory Results 05/23/18 03:24 05/23/18 03:24 05/22/18 05/23/18 05/24/18 05:59 05:59 05:59 Intake Total 3750 650 Output Total 550 1700 Balance 3200 -1050 - Physical Exam Constitutional: no apparent distress Eyes: PERRL, EOMI Ears, Nose, Mouth, Throat: moist mucous membranes, hearing normal Cardiovascular: regular rate and rhythym, No edema Respiratory: no respiratory distress, no rales or rhonchi, clear to auscultation Gastrointestinal: normoactive bowel sounds, soft, non-tender abdomen Skin: warm Neurologic: AAOx3 Psychiatric: interacting appropriately, not anxious, not encephalopathic Lymph, Heme, Immunologic: No petechiae ICD10 Worksheet Patient Problems: Problems Problem Status Onset Hypokalemia Acute Hyponatremia Acute Low back pain Acute Vomiting Acute
[2018-05-23] MEDS: HYDROCODONE/APAP 5/325 TAB PO PRN (21:32)
[2018-05-24] MEDS: SERTRALINE HCL 100 MG TAB PO SCH (09:32)
[2018-05-24] MEDS: POTASSIUM CL 20 MEQ TAB PO SCH (09:33)
[2018-05-24] MEDS: GABAPENTIN 100 MG CAP PO SCH (09:33)
[2018-05-24] MEDS: METOPROLOL SUCCINATE XR 100 MG TAB PO SCH (09:33)
[2018-05-24] MEDS: CHOLECALCIFEROL VIT D3 2,000 UNITS TAB/CAP PO SCH (09:33)
[2018-05-24] MEDS: PREGABALIN 100 MG CAP PO SCH (09:33)
[2018-05-24] MEDS: FAMOTIDINE 20 MG TAB PO SCH (09:34)
[2018-05-24] MEDS: VITAMIN B COMPLEX 1 EA CAP/TAB PO SCH (09:34)
[2018-05-24] MEDS ORDERED: NS 1,000 ML IV ONE (12:53)
--- NOTE | 2018-05-24 13:02 | PDDCSUM ---
Discharge Summary Discharge Summary: This is a 57 yo female admitted with malfunctioning insulin pump, dehydration, mild DKA, and LEIDY. She was admitted and treated accordingly. Pump has been repaired and working ok. Glucose is better. Cr is improved but still 1.3; her baseline is normal. She will received 1 additional liter of fluid before discharging. She is tolerating PO. She feels better. She has f/u next week. Lisinopril has been held until f/u and repeat BMP She was also noted to have a UTI and this was treated with Rocephin x 3 days. DDX: #IDDM type I #Hyperglycemia, Metabolic Acidosis, Nearing DKA #Dehydration #UTI, Rocephin #Malfunctioning insulin pump, ran out of insulin #Hypokalemia, severe #Hypomagnesemia #Acute Kidney Injury #Long QT syndrome, stop meds prolonging QT #Hx of HTN #Nausea and Vomiting, improving Exam: NAD AAOX3 RRR CTA B S/NT/ND MEDS: SEE MED REC TOTAL TIME SPENT ON D/C IS 35 MINS
--- NOTE | 2018-05-24 14:17 | ASDISCHSUM ---
Discharge Information Plan Status:Home with No Needs Medically Cleared to Leave:05/23/2018 Discharge Date:05/23/2018 CM D/C Disposition:Home, Routine, Self-Care ADT D/C Disposition: Projected Discharge Date:05/23/2018 Transportation at D/C: Discharge Delay Reason: Follow-Up Date:05/23/2018 Discharge Slot: Final Diagnosis: Placement Information Patient Contact Information Contact Name:GLADYS Relationship: Address:[address] City:[place] Alternate Phone: State/Zip Code:[place] [address] Email: Financial Information Financial Class:[facility] Primary Plan Desc:[facility] Primary Plan Number:[id number] Secondary Plan Desc: Secondary Plan Number: Assessment Information LACE LACE Length of stay for Answers: 1 day current admission Acuity / Level of Answers: Yes Care: Did the patient have an inpatient admission? Comorbidities - select Answers: Diabetes (uncontrolled or all that apply controlled) Opioid dependence / Chronic pain Other Notes: HTN; Neuropathy # of Emergency department Answers: 0 visits in the last 6 months Score: 10 Date Signed: 05/24/2018 02:15 PM Electronically Signed By:Barbie Cornell RN [facility] Progress Note CM Note CM Note Notes: 05/22/2018 Case Management Note Discussed pt during rounds this morning. Pt admitted for hypokalemia and dehydration. Pt is T1D. Met w/pt and Jeffrey [phone]. Pt uses [employer] 670 g pump with CGM. Pt is followed by Dr. Malone. Pt reports using [employer] rep to troubleshoot pump issues prior to admission. There are no case management d/c needs identified d/t family support and pt independence with ADL's prior to admission. Case Management d/c poc: independent with follow up as directed. Case Management available if needs change. Date Signed: 05/22/2018 02:53 PM Electronically Signed By:Barbie Cornell RN Case Management Discharge Plan Note Case Management Discharge Discharge Order Complete? Answers: Yes Patient to Obtain Answers: Independently Medications Discharge Comments Notes: 05/24/2018 Case Management Note Pt discharged independent with follow up as directed. PT cleared for home. Date Signed: 05/24/2018 02:16 PM Electronically Signed By:Barbie Cornell RN Intervention Information
[2018-05-24 15:29] VITALS: BP 143/91
== END 2018-05-24 14:55 | disposition home or self-care (01) | DRG 920 ==
LOC: F2W 17:37 → OBSVTOIN 05-22 16:25
PROVIDERS: ADMIT Internal Medicine; ATTEND Internal Medicine
DX: T85.614A Breakdown (mechanical) of insulin pump, initial encounter (principal); E10.65 Type 1 diabetes mellitus with hyperglycemia; E10.40 Type 1 diabetes mellitus with diabetic neuropathy, unspecified; E10.319 Type 1 diabetes mellitus with unspecified diabetic retinopathy without macular edema; N17.9 Acute kidney failure, unspecified; E87.6 Hypokalemia; E83.42 Hypomagnesemia; N39.0 Urinary tract infection, site not specified; I45.81 Long QT syndrome; I10 Essential (primary) hypertension; Z79.4 Long term (current) use of insulin; Z96.41 Presence of insulin pump (external) (internal)
CPT/HCPCS: 84484-ER; 96365; 97110-GP; 97116-GP; 97161-GP; G0378; J0696; J1815; J3475; J3480